=== PATIENT | male | born 1985 | race Caucasian/White ===

== ENCOUNTER 2016-07-12 18:35 | Emergency (ER) | payer BC, OTHER ==
[2016-07-12] MEDS ORDERED: Sodium Chloride 0.9% 1,000 ML IV ONE (19:20)
[2016-07-12] MEDS ORDERED: fentaNYL 100 MCG/2 ML SDV IVPUSH ONE (19:20)
[2016-07-12 20:04] LABS: CHLORIDE,CL 107 mmol/L (98-110); SODIUM,NA 140 mmol/L (136-146)
--- NOTE | 2016-07-12 20:48 | EDM.PDOC ---
ED HPI GENERAL MEDICAL PROBLEM - General Chief Complaint: Gastrointestinal Problem Stated Complaint: ANAL BLEEDING Time Seen by Provider: 07/12/16 19:20 Source of Information: Reports: Patient History Limitations: Reports: No Limitations - History of Present Illness INITIAL COMMENTS - FREE TEXT/NARRATIVE: History of present illness: [30-year-old male presenting with complaints of anal pain and discharge. Patient has had A. complex history with fistulas and abscesses that he has received surgical interventions for her as well as outpatient treatment. Patient is on several antibiotics but came in today secondary to feelings of increased discomfort as well as increased discharge, desires to be evaluated.] Review of systems: As per history of present illness and below otherwise all systems reviewed and negative. Past medical history: As per history of present illness and as reviewed below otherwise noncontributory. Surgical history: As per history of present illness and as reviewed below otherwise noncontributory. Social history: No reported history of drug or alcohol abuse. Family history: As per history of present illness and as reviewed below otherwise noncontributory. Physical exam: HEENT: Atraumatic, normocephalic, pupils reactive, negative for conjunctival pallor or scleral icterus, mucous membranes moist, throat clear, neck supple, nontender, trachea midline. Lungs: Clear to auscultation, breath sounds equal bilaterally, chest nontender. Heart: S1S2, regular, negative for clicks, rubs, or JVD. Abdomen: Soft, nondistended, nontender. Negative for masses or hepatosplenomegaly. Negative for costovertebral tenderness. Pelvis: Stable nontender. Genitourinary: Deferred. Rectal: Area visualized with Band-Aid noted to be in place with scant amount of drainage at this time Extremities: Atraumatic, negative for cords or calf pain. Neurovascular unremarkable. Neuro: Awake, alert, oriented. Cranial nerves II through XII unremarkable. Cerebellum unremarkable. Motor and sensory unremarkable throughout. Exam nonfocal. Diagnostics: [CBC, CMP] Therapeutics: [IV fluids, fentanyl] Impression: [Abscess] Plan: [Followup with PCP continue antibiotics] Definitive disposition and diagnosis as appropriate pending reevaluation and review of above. Rectal Pain Score (Numeric/FACES): 8 - Related Data Allergies Allergy/AdvReac Type Severity Reaction Status Date / Time tramadol Allergy Seizure Verified 07/12/16 18:46 Home Meds: Home Meds Gabapentin [Neurontin] 1,200 mg PO TID 08/11/14 [History] Levofloxacin [Levaquin] 500 mg PO DAILY #9 tab 08/11/14 [Rx] metroNIDAZOLE [Flagyl] 500 mg PO Q8H #27 tablet 08/11/14 [Rx] oxyCODONE HCl/Acetaminophen [Percocet 5-325 mg Tablet] 1 - 2 each PO Q4H #5 tablet 08/11/14 [Rx] Ciprofloxacin HCl [Cipro] 500 mg PO ASDIRECTED 07/12/16 [History] Past Medical History HEENT History: Reports: Impaired Vision Cardiovascular History: Reports: Hypertension Respiratory History: Reports: None Other Gastrointestinal History: nery-rectal abccess Genitourinary History: Reports: None Neurological History: Reports: Neuropathy, Peripheral Psychiatric History: Reports: None Endocrine/Metabolic History: Reports: Obesity/BMI 30+ Hematologic History: Reports: None Immunologic History: Reports: None Oncologic (Cancer) History: Reports: None Dermatologic History: Reports: None - Past Surgical History Head Surgeries/Procedures: Reports: None Musculoskeletal Surgical History: Reports: Shoulder Surgery Social & Family History - Family History Family Medical History: Noncontributory - Tobacco Use Smoking Status *Q: Current Every Day Smoker Years of Tobacco use: 10 Packs/Tins Daily: 1 Used Tobacco, but Quit: No - Caffeine Use Caffeine Use: Reports: Coffee - Recreational Drug Use Recreational Drug Use: No ED ROS GENERAL - Review of Systems Review Of Systems: See Below (See history of present illness) ED EXAM, GENERAL - Physical Exam Exam: See Below (The history of present illness) Course - Vital Signs Last Recorded V/S: Last Vital Signs Temp 36.7 C 07/12/16 18:48 Pulse 87 07/12/16 18:48 Resp 18 07/12/16 18:48 BP 165/102 H 07/12/16 18:48 Pulse Ox 98 07/12/16 18:48 - Orders/Labs/Meds Labs: Laboratory Tests 07/12/16 07/12/16 Range/Units 19:30 19:30 WBC 9.00 (4.0-11.0) K/uL RBC 5.13 (4.50-5.90) M/uL Hgb 15.5 (13.0-17.0) g/dL Hct 44.7 (38.0-50.0) % MCV 87.1 (80.0-98.0) fL MCH 30.2 (27.0-32.0) pg MCHC 34.7 (31.0-37.0) g/dL RDW Std Deviation 42.3 (28.0-62.0) fl RDW Coeff of Soniya 13 (11.0-15.0) % Plt Count 207 (150-400) K/uL MPV 9.70 (7.40-12.00) fL Neut % (Auto) 58.8 (48.0-80.0) % Lymph % (Auto) 34.0 (16.0-40.0) % [place] % (Auto) 5.9 (0.0-15.0) % Eos % (Auto) 1.1 (0.0-7.0) % Baso % (Auto) 0.2 (0.0-1.5) % Neut # (Auto) 5.3 (1.4-5.7) K/uL Lymph # (Auto) 3.1 H (0.6-2.4) K/uL [place] # (Auto) 0.5 (0.0-0.8) K/uL Eos # (Auto) 0.1 (0.0-0.7) K/uL Baso # (Auto) 0.0 (0.0-0.1) K/uL Nucleated RBC % 0.0 /100WBC Nucleated RBCs # 0 K/uL Sodium 140 (136-146) mmol/L Potassium 3.6 (3.5-5.1) mmol/L Chloride 107 (98-110) mmol/L Carbon Dioxide 20 L (21-31) mmol/L BUN 10 (6.0-23.0) mg/dL Creatinine 0.9 (0.6-1.5) mg/dL Est Cr Clr Drug Dosing 135.63 mL/min Estimated GFR (MDRD) > 60.0 ml/min Glucose 91 (60-110) mg/dL Calcium 10.5 (8.8-10.8) mg/dL Total Bilirubin 0.3 (0.1-1.5) mg/dL AST 21 (5-40) IU/L ALT 27 (8-54) IU/L Alkaline Phosphatase 61 (40-150) Total Protein 7.5 (6.0-8.0) g/dL Albumin 4.5 (3.5-5.0) g/dL Globulin 3.0 (2.0-3.5) g/dL Albumin/Globulin Ratio 1.5 (1.3-2.8) Meds: Medications Discontinued Medications Generic Name Dose Route Start Last Admin Trade Name Tiagoq PRN Reason Stop Dose Admin Fentanyl 50 mcg 07/12/16 19:20 07/12/16 19:34 Sublimaze IVPUSH 07/12/16 19:21 50 mcg ONETIME ONE Administration Sodium Chloride 1,000 mls @ 999 mls/hr 07/12/16 19:20 07/12/16 19:33 Normal Saline IV 07/12/16 20:20 999 mls/hr STAT ONE Administration Departure - Departure Time of Disposition: 20:47 Disposition: Home, Self-Care 01 Condition: good Clinical Impression: Abscess, renal/perirenal - Discharge Information Forms: ED Department Discharge Additional Instructions: The following information is given to patients seen in the emergency department who are being discharged to home. This information is to outline your options for follow-up care. We provide all patients seen in our emergency department with a follow-up referral. The need for follow-up, as well as the timing and circumstances, are variable depending upon the specifics of your emergency department visit. If you don't have a primary care physician on staff, we will provide you with a referral. We always advise you to contact your personal physician following an emergency department visit to inform them of the circumstance of the visit and for follow-up with them and/or the need for any referrals to a consulting specialist. The emergency department will also refer you to a specialist when appropriate. This referral assures that you have the opportunity for follow-up care with a specialist. All of these measure are taken in an effort to provide you with optimal care, which includes your follow-up. Under all circumstances we always encourage you to contact your private physician who remains a resource for coordinating your care. When calling for follow-up care, please make the office aware that this follow-up is from your recent emergency room visit. If for any reason you are refused follow-up, please contact the [facility] Emergency Department at and asked to speak to the emergency department charge nurse. Continue on the antibiotics as prescribed Followup with your PCP 1-2 days Return to ED as needed as discussed
[2016-07-12 20:59] VITALS: BP 142/90
== END 2016-07-12 21:03 | disposition home or self-care (01) ==
LOC: MW.ED 18:35
DX: N15.1 Renal and perinephric abscess (principal); F17.210 Nicotine dependence, cigarettes, uncomplicated; I10 Essential (primary) hypertension; E66.9 Obesity, unspecified; Z68.34 Body mass index [BMI] 34.0-34.9, adult; Z88.5 Allergy status to narcotic agent; Z79.899 Other long term (current) drug therapy
CPT/HCPCS: 80053; 85025; 96361; 96374; 99284; J3010; J7040

== ENCOUNTER 2016-08-28 18:31 | Emergency (ER) | payer BC, OTHER ==
[2016-08-28] MEDS ORDERED: Morphine 10 MG/ML Syringe IM ONE (18:36)
[2016-08-28] MEDS ORDERED: Ketorolac 60 MG/2 ML SDV IM ONE (18:36)
--- NOTE | 2016-08-28 18:54 | EDM.PDOC ---
ED HPI GENERAL MEDICAL PROBLEM - General Chief Complaint: General Stated Complaint: DISLOCATED LEFT SHOULDER Time Seen by Provider: 08/28/16 18:35 Source of Information: Reports: Patient History Limitations: Reports: No Limitations - History of Present Illness INITIAL COMMENTS - FREE TEXT/NARRATIVE: History of present illness: [30-year-old male presenting with acute onset left-sided shoulder pain. Patient has a protracted history of dislocations and has had surgery on the shoulder for this problem but indicates he was holding a tool box in this arm and was bending over to set it down when he felt his arm give. Patient is certain that it is dislocated again.] Review of systems: As per history of present illness and below otherwise all systems reviewed and negative. Past medical history: As per history of present illness and as reviewed below otherwise noncontributory. Surgical history: As per history of present illness and as reviewed below otherwise noncontributory. Social history: No reported history of drug or alcohol abuse. Family history: As per history of present illness and as reviewed below otherwise noncontributory. Physical exam: HEENT: Atraumatic, normocephalic, pupils reactive, negative for conjunctival pallor or scleral icterus, mucous membranes moist, throat clear, neck supple, nontender, trachea midline. Lungs: Clear to auscultation, breath sounds equal bilaterally, chest nontender. Heart: S1S2, regular, negative for clicks, rubs, or JVD. Abdomen: Soft, nondistended, nontender. Negative for masses or hepatosplenomegaly. Negative for costovertebral tenderness. Pelvis: Stable nontender. Genitourinary: Deferred. Rectal: Deferred. Extremities: Atraumatic, negative for cords or calf pain. Neurovascular unremarkable. Neuro: Awake, alert, oriented. Cranial nerves II through XII unremarkable. Cerebellum unremarkable. Motor and sensory unremarkable throughout. Exam nonfocal. Diagnostics: [X-ray of left shoulder] Therapeutics: [Toradol, Norflex, morphine] Impression: [Shoulder pain] Plan: [Sling follow-up with primary care Definitive disposition and diagnosis as appropriate pending reevaluation and review of above. left shoulder Pain Score (Numeric/FACES): 8 - Related Data Allergies Allergy/AdvReac Type Severity Reaction Status Date / Time tramadol Allergy Seizure Verified 08/28/16 18:40 Home Meds: Home Meds Gabapentin [Neurontin] 1,200 mg PO TID 08/11/14 [History] Losartan [Cozaar] 100 mg PO DAILY 08/28/16 [History] Past Medical History HEENT History: Reports: Impaired Vision Cardiovascular History: Reports: Hypertension Respiratory History: Reports: None Other Gastrointestinal History: nery-rectal abccess Genitourinary History: Reports: None Neurological History: Reports: Neuropathy, Peripheral Psychiatric History: Reports: None Endocrine/Metabolic History: Reports: Obesity/BMI 30+ Hematologic History: Reports: None Immunologic History: Reports: None Oncologic (Cancer) History: Reports: None Dermatologic History: Reports: None - Past Surgical History Head Surgeries/Procedures: Reports: None Musculoskeletal Surgical History: Reports: Shoulder Surgery Social & Family History - Family History Family Medical History: Noncontributory - Tobacco Use Smoking Status *Q: Current Every Day Smoker Years of Tobacco use: 10 Packs/Tins Daily: 1 Used Tobacco, but Quit: No - Caffeine Use Caffeine Use: Reports: Coffee - Recreational Drug Use Recreational Drug Use: No ED ROS GENERAL - Review of Systems Review Of Systems: See Below (See history of present illness) ED EXAM, GENERAL - Physical Exam Exam: See Below (See history of present illness) Course - Vital Signs Last Recorded V/S: Last Vital Signs Temp 36.7 C 08/28/16 19:08 Pulse 102 H 08/28/16 19:08 Resp 18 08/28/16 19:08 BP 137/91 H 08/28/16 19:08 Pulse Ox 96 08/28/16 19:08 - Orders/Labs/Meds Orders: Active Orders 24 hr Category Date Time Status Shoulder Comp Lt [CR] Stat Exams 08/28/16 18:36 Taken Orphenadrine [Norflex] Med 08/28/16 18:45 Active 60 mg IM Q12H Medication Orders Orphenadrine Citrate (Norflex) 60 mg IM Q12H MEREDITH Last Admin: 08/28/16 18:42 Dose: 60 mg Meds: Medications Generic Name Dose Route Start Last Admin Trade Name Freq PRN Reason Stop Dose Admin Orphenadrine Citrate 60 mg 08/28/16 18:45 08/28/16 18:42 Norflex IM 60 mg Q12H MEREDITH Administration Discontinued Medications Generic Name Dose Route Start Last Admin Trade Name Freq PRN Reason Stop Dose Admin Ketorolac Tromethamine 60 mg 08/28/16 18:36 08/28/16 18:42 Toradol IM 08/28/16 18:37 60 mg ONETIME ONE Administration Morphine Sulfate 5 mg 08/28/16 18:36 08/28/16 18:41 Morphine IM 08/28/16 18:37 5 mg ONETIME ONE Administration Departure - Departure Time of Disposition: 19:41 Disposition: Home, Self-Care 01 Condition: Good Clinical Impression: Shoulder pain - Discharge Information Additional Instructions: The following information is given to patients seen in the emergency department who are being discharged to home. This information is to outline your options for follow-up care. We provide all patients seen in our emergency department with a follow-up referral. The need for follow-up, as well as the timing and circumstances, are variable depending upon the specifics of your emergency department visit. If you don't have a primary care physician on staff, we will provide you with a referral. We always advise you to contact your personal physician following an emergency department visit to inform them of the circumstance of the visit and for follow-up with them and/or the need for any referrals to a consulting specialist. The emergency department will also refer you to a specialist when appropriate. This referral assures that you have the opportunity for follow-up care with a specialist. All of these measure are taken in an effort to provide you with optimal care, which includes your follow-up. Under all circumstances we always encourage you to contact your private physician who remains a resource for coordinating your care. When calling for follow-up care, please make the office aware that this follow-up is from your recent emergency room visit. If for any reason you are refused follow-up, please contact the [facility] Emergency Department at and asked to speak to the emergency department charge nurse. Take medication as directed Use sling as instructed Follow-up with PCP in 1-2 days Return to ED as needed as discussed - My Orders Last 24 Hours: My Active Orders 08/28/16 18:36 Shoulder Comp Lt [CR] Stat 08/28/16 18:45 Orphenadrine [Norflex] 60 mg IM Q12H - Assessment/Plan Last 24 Hours: My Active Orders 08/28/16 18:36 Shoulder Comp Lt [CR] Stat 07/08/17 18:45 Orphenadrine [Norflex] 60 mg IM Q12H
[2016-08-28 20:41] VITALS: BP 136/82
--- NOTE | 2016-08-30 13:08 | CR ---
EXAM DATE: 08/28/16 PATIENT'S AGE: 30 Patient: LAMAR LOPEZ Facility: [place], [place] Site . Site : 1985 Study: XRay Shoulder Left [id number] 7:04:25 PM Ordering Physician: Doctor Kothari Final Report: INDICATION: Trauma. Pain. Previous surgery of the left shoulder February 2016. Technique : Three views of the left shoulder. COMPARISON: None. FINDINGS: There is no evidence for new or old fracture or dislocation. No erosion. The AC and glenohumeral joints are normal. Metallic screw within the left humeral head. IMPRESSION: 1. Postsurgical change left humerus. 2. No acute fracture or dislocation. Dictated by Aquiles Scott MD @ 08/28/2016 7:27:14 PM Dictated by: Aquiles Scott MD @ 08/28/2016 19:27:21 (Electronic Signature) Report Signed by Proxy. LORETTA
== END 2016-08-28 20:09 | disposition home or self-care (01) ==
LOC: MW.ED 18:31
DX: M25.512 Pain in left shoulder (principal); I10 Essential (primary) hypertension; E66.9 Obesity, unspecified; F17.210 Nicotine dependence, cigarettes, uncomplicated; Z88.5 Allergy status to narcotic agent; Z79.899 Other long term (current) drug therapy; Z68.34 Body mass index [BMI] 34.0-34.9, adult
CPT/HCPCS: 73030; 96372; 99283; J1885; J2270; J2360

== ENCOUNTER 2018-06-14 18:44 | Observation (INO) | payer BC, OTHER ==
[2018-06-14] MEDS ORDERED: Aspirin 81 MG Tab.Chew PO ONE (19:04)
[2018-06-14] MEDS ORDERED: Albuterol/Ipratropium 3.0-0.5 MG/3 ML Neb Soln NEB ONE (19:09)
[2018-06-14] MEDS: Nitroglycerin 0.4 MG Tab.SL SL PRN ×3 (19:09→19:22)
[2018-06-14] MEDS ORDERED: methylPREDNISolone Sodium Succinate 125 MG/2 ML SDV IVPUSH ONE (19:09)
[2018-06-14] MEDS ORDERED: Sodium Chloride 0.9% 1,000 ML IV ONE ×2 (19:11→21:04)
[2018-06-14] MEDS ORDERED: Ondansetron 4 MG/2 ML SDV IVPUSH ONE (19:11)
--- NOTE | 2018-06-14 19:12 | EDM.PDOC ---
ED [facility] GENERAL MEDICAL PROBLEM - General Chief Complaint: Chest Pain Stated Complaint: CHEST PAIN Time Seen by Provider: 06/14/18 18:47 Source of Information: Reports: Patient History Limitations: Reports: No Limitations - History of Present Illness INITIAL COMMENTS - FREE TEXT/NARRATIVE: HISTORY AND PHYSICAL: History of present illness: Patient is a 32-year-old male presents to the ED today with concern of mid sternal chest pain 3 hours that he rates a 7 out of 10. Patient states that he was at work climbing up stairs when he noticed the chest pain symptoms worsening. Patient states he does have a history of a stroke with residual right sided mouth weakness per his baseline. Patient states he has not taken any medications for his symptoms and he is not on any blood thinners at this time. Patient states he does have some nausea and that this pain radiates to his back. Patient does smoke a half a pack a day for 15 years. Patient denies fever, chills, shortness of breath, or cough. Denies headache, neck stiff ness, change in vision, syncope, or near syncope. Denies vomiting, abdominal pain, diarrhea, constipation, or dysuria. Has not noted any blood in urine or stool. Patient has been eating and drinking appropriately. Patient does have a history of hypertension and history of stroke. Review of systems: As per history of present illness and below otherwise all systems reviewed and negative. Past medical history: As per history of present illness and as reviewed below otherwise noncontributory. Surgical history: As per history of present illness and as reviewed below otherwise noncontributory. Social history: See social history for further information Family history: As per history of present illness and as reviewed below otherwise noncontributory. Physical exam: General: Patient is alert, oriented, and in no acute distress. Patient sitting comfortably on exam table. HEENT: Atraumatic, normocephalic, pupils equal and reactive bilaterally, negative for conjunctival pallor or scleral icterus, mucous membranes moist, TMs normal bilaterally, throat clear, neck supple, nontender, trachea midline. No drooling or trismus noted. No meningeal signs. No hot potato voice noted. Lungs: Diffuse wheezing of the lung bases heard to auscultation, breath sounds equal bilaterally, chest nontender. Heart: S1S2, regular rate and rhythm without overt murmur Abdomen: Obese, soft, nondistended, nontender. Negative for masses or hepatosplenomegaly. Negative for costovertebral tenderness. Pelvis: Stable nontender. Genitourinary: Deferred. Rectal: Deferred. Skin: Intact, warm, dry. No lesions or rashes noted. Extremities: Atraumatic, negative for cords or calf pain. Neurovascular unremarkable. Neuro: Awake, alert, oriented. Cranial nerves II through XII unremarkable. Cerebellum unremarkable. Motor and sensory unremarkable throughout. Exam nonfocal. Notes: Patient does have resolution of symptoms following therapeutics today. Offered admission for observation the patient declines at this time. He states he is accepting the risks of going home Voices understanding and is agreeable to plan of care. Denies any further questions or concerns at this time. Diagnostics: EKG, CBC, CMP, UA, troponin, chest x-ray, lipase Therapeutics: Saline, aspirin, nitroglycerin, DuoNeb, Solu-Medrol, Zofran, morphine Prescription: None Impression: Chest pain, unspecified h/o of stroke Plan: 1. You can alternate ibuprofen or Tylenol as directed for pain and discomfort. 2. Follow-up with her primary care provider as discussed. 3. Return to the ED as needed and as discussed. Definitive disposition and diagnosis as appropriate pending reevaluation and review of above. Mid-Sternal Chest Pain Score (Numeric/FACES): 6 - Related Data Allergies Allergy/AdvReac Type Severity Reaction Status Date / Time tramadol Allergy Seizure Verified 06/14/18 18:57 Home Meds: Home Meds Gabapentin [Neurontin] 600 mg PO TID 08/11/14 [History] Losartan [Cozaar] 100 mg PO DAILY 08/28/16 [History] atorvaSTATin [Lipitor] 06/14/18 [History] Past Medical History HEENT History: Reports: Impaired Vision Cardiovascular History: Reports: Hypertension Respiratory History: Reports: None Other Gastrointestinal History: nery-rectal abccess Genitourinary History: Reports: None Neurological History: Reports: CVA, Neuropathy, Peripheral Psychiatric History: Reports: None Endocrine/Metabolic History: Reports: Obesity/BMI 30+ Hematologic History: Reports: None Immunologic History: Reports: None Oncologic (Cancer) History: Reports: None Dermatologic History: Reports: None - Infectious Disease History Infectious Disease History: Reports: Chicken Pox - Past Surgical History Head Surgeries/Procedures: Reports: None Musculoskeletal Surgical History: Reports: Shoulder Surgery Social & Family History - Family History Family Medical History: Noncontributory - Tobacco Use Smoking Status *Q: Current Every Day Smoker Years of Tobacco use: 12 Packs/Tins Daily: 0.5 - Caffeine Use Caffeine Use: Reports: Coffee - Recreational Drug Use Recreational Drug Use: No ED ROS GENERAL - Review of Systems Review Of Systems: ROS reveals no pertinent complaints other than HPI. ED EXAM, GENERAL - Physical Exam Exam: See Below (See dictation) Course - Vital Signs Last Recorded V/S: Last Vital Signs Temp 36.7 C 06/14/18 18:53 Pulse 92 06/14/18 18:53 Resp 18 06/14/18 18:53 BP 130/92 H 06/14/18 19:22 Pulse Ox 96 06/14/18 18:53 - Orders/Labs/Meds Orders: Active Orders 24 hr Category Date Time Status Cardiac Monitoring [RC] . DIRECTED Care 06/14/18 18:47 Active EKG Documentation Completion [RC] STAT Care 06/14/18 18:48 Active RT Aerosol Therapy [RC] ASDIRECTED Care 06/14/18 19:09 Active UA RFX CALE AND CULT IF INDIC [URIN] Stat Lab 06/14/18 18:47 Ordered Labs: Laboratory Tests 06/14/18 06/14/18 Range/Units 18:50 18:50 WBC 10.40 (4.0-11.0) K/uL RBC 5.37 (4.50-5.90) M/uL Hgb 16.3 (13.0-17.0) g/dL Hct 47.3 (38.0-50.0) % MCV 88.1 (80.0-98.0) fL MCH 30.4 (27.0-32.0) pg MCHC 34.5 (31.0-37.0) g/dL RDW Std Deviation 41.1 (28.0-62.0) fl RDW Coeff of Soniya 13 (11.0-15.0) % Plt Count 230 (150-400) K/uL MPV 9.70 (7.40-12.00) fL Neut % (Auto) 55.8 (48.0-80.0) % Lymph % (Auto) 36.0 (16.0-40.0) % [place] % (Auto) 5.5 (0.0-15.0) % Eos % (Auto) 2.5 (0.0-7.0) % Baso % (Auto) 0.2 (0.0-1.5) % Neut # (Auto) 5.8 H (1.4-5.7) K/uL Lymph # (Auto) 3.7 H (0.6-2.4) K/uL [place] # (Auto) 0.6 (0.0-0.8) K/uL Eos # (Auto) 0.3 (0.0-0.7) K/uL Baso # (Auto) 0.0 (0.0-0.1) K/uL Nucleated RBC % 0.0 /100WBC Nucleated RBCs # 0 K/uL Sodium 139 (136-148) mmol/L Potassium 3.7 (3.5-5.1) mmol/L Chloride 103 (98-107) mmol/L Carbon Dioxide 25.0 (21.0-32.0) mmol/L BUN 10 (7.0-18.0) mg/dL Creatinine 1.0 (0.8-1.3) mg/dL Est Cr Clr Drug Dosing 119.85 mL/min Estimated GFR (MDRD) > 60.0 ml/min Glucose 91 (74-106) mg/dL Calcium 9.1 (8.5-10.1) mg/dL Total Bilirubin 0.4 (0.2-1.0) mg/dL AST 18 (15-37) IU/L ALT 40 (14-63) IU/L Alkaline Phosphatase 75 (46-116) U/L Troponin I < 0.050 (0.000-0.056) ng/mL Total Protein 8.0 (6.4-8.2) g/dL Albumin 4.4 (3.4-5.0) g/dL Globulin 3.6 (2.6-4.0) g/dL Albumin/Globulin Ratio 1.2 (0.9-1.6) Lipase 92 (73-393) U/L Meds: Medications Discontinued Medications Generic Name Dose Route Start Last Admin Trade Name Freq PRN Reason Stop Dose Admin Albuterol/Ipratropium 3 ml 06/14/18 19:09 06/14/18 19:23 Duoneb 3.0-0.5 Mg/3 Ml NEB 06/14/18 19:10 3 ml ONETIME ONE Administration Aspirin 324 mg 06/14/18 19:04 06/14/18 19:09 Aspirin PO 06/14/18 19:05 324 mg ONETIME ONE Administration Sodium Chloride 1,000 mls @ 999 mls/hr 06/14/18 19:11 06/14/18 19:13 Normal Saline IV 06/14/18 20:11 999 mls/hr STAT ONE Administration Methylprednisolone Sodium Succinate 125 mg 06/14/18 19:09 06/14/18 19:13 Solu-Medrol IVPUSH 06/14/18 19:10 125 mg ONETIME ONE Administration Morphine Sulfate 2 mg 06/14/18 19:29 06/14/18 19:39 Morphine IVPUSH 06/14/18 19:30 2 mg ONETIME ONE Administration Nitroglycerin 0.4 mg 06/14/18 19:04 06/14/18 19:22 Nitrostat SL 0.4 mg Q5M PRN Administration Chest Pain Ondansetron HCl 4 mg 06/14/18 19:11 06/14/18 19:16 Zofran IVPUSH 06/14/18 19:12 4 mg ONETIME ONE Administration Departure - Departure Time of Disposition: 20:30 Disposition: Home, Self-Care 01 Clinical Impression: Chest pain Qualifiers: Chest pain type: unspecified Qualified Code(s): R07.9 - Chest pain, unspecified Forms: ED Department Discharge Additional Instructions: The following information is given to patients seen in the emergency department who are being discharged to home. This information is to outline your options for follow-up care. We provide all patients seen in our emergency department with a follow-up referral. The need for follow-up, as well as the timing and circumstances, are variable depending upon the specifics of your emergency department visit. If you don't have a primary care physician on staff, we will provide you with a referral. We always advise you to contact your personal physician following an emergency department visit to inform them of the circumstance of the visit and for follow-up with them and/or the need for any referrals to a consulting specialist. The emergency department will also refer you to a specialist when appropriate. This referral assures that you have the opportunity for follow-up care with a specialist. All of these measure are taken in an effort to provide you with optimal care, which includes your follow-up. Under all circumstances we always encourage you to contact your private physician who remains a resource for coordinating your care. When calling for follow-up care, please make the office aware that this follow-up is from your recent emergency room visit. If for any reason you are refused follow-up, please contact the [facility] Emergency Department at and asked to speak to the emergency department charge nurse. [facility] [address] [place] [id number] [facility] [address] [place] [id number] 1. You can alternate ibuprofen or Tylenol as directed for pain and discomfort. 2. Follow-up with her primary care provider as discussed. 3. Return to the ED as needed and as discussed. - My Orders Last 24 Hours: My Active Orders 06/14/18 18:47 Cardiac Monitoring [RC] . DIRECTED UA RFX CALE AND CULT IF INDIC [URIN] Stat 06/14/18 18:48 EKG Documentation Completion [RC] STAT 06/14/18 19:09 RT Aerosol Therapy [RC] ASDIRECTED - Assessment/Plan Last 24 Hours: My Active Orders 06/14/18 18:47 Cardiac Monitoring [RC] . DIRECTED UA RFX CALE AND CULT IF INDIC [URIN] Stat 06/14/18 18:48 EKG Documentation Completion [RC] STAT 06/14/18 19:09 RT Aerosol Therapy [RC] ASDIRECTED
[2018-06-14 19:27] LABS: CHLORIDE,CL 103 mmol/L (98-107); SODIUM,NA 139 mmol/L (136-148)
[2018-06-14] MEDS ORDERED: Morphine 2 MG/ML Syringe IVPUSH ONE ×2 (19:29→21:43)
--- NOTE | 2018-06-14 20:24 | CR ---
Indication: Chest pain, shortness of breath, lightheaded Technique: Chest 1 view Comparison: None Findings/Impression: Cardiovascular and mediastinum: Heart size and vasculature are normal in caliber and appearance. Mediastinum is within normal limits. Lungs and pleural space: Lungs are clear. No sign of infiltrate or mass. No sign of pleural effusion. No pneumothorax. Bones and soft tissues: No significant findings. Dictated by Claudine Rich MD @ Jun 14 2018 8:21PM Signed by Dr. Claudine Rich @ Jun 14 2018 8:22PM
[2018-06-14] MEDS ORDERED: Pantoprazole 40 MG Vial IVPUSH ONE (22:13)
[2018-06-14] MEDS ORDERED: Morphine 10 MG/ML Syringe IVPUSH PRN (22:13)
[2018-06-14] MEDS ORDERED: Ondansetron 4 MG/2 ML SDV IVPUSH PRN (22:13)
--- NOTE | 2018-06-14 22:17 | PCM.HP ---
H&P History of Present Illness - General Date of Service: 06/14/18 Admit Problem/Dx: Admission Diagnosis/Problem Admission Diagnosis/Problem Chest pain - History of Present Illness Initial Comments - Free Text/Narative: 32 yo male with pmh of CVA who presents with several hour history of chest pain. The pain is a sharp substernal chest pressure that occurs with exertion. He denies any shortness of breath, cough, fevers, or diaphoresis. He was given ASA in the the ED. Initial EKG and cardiac enzymes were negative for signs of ischemia. CXR was clear. Mid-Sternal Chest Pain Score (Numeric/FACES): 6 - Related Data Allergies/Adverse Reactions: Allergies Allergy/AdvReac Type Severity Reaction Status Date / Time tramadol Allergy Seizure Verified 06/14/18 18:57 Home Medications: Home Meds Gabapentin [Neurontin] 600 mg PO TID 08/11/14 [History] Losartan [Cozaar] 100 mg PO DAILY 08/28/16 [History] atorvaSTATin [Lipitor] 06/14/18 [History] Past Medical History HEENT History: Reports: Impaired Vision Cardiovascular History: Reports: Hypertension Respiratory History: Reports: None Other Gastrointestinal History: nery-rectal abccess Genitourinary History: Reports: None Neurological History: Reports: CVA, Neuropathy, Peripheral Psychiatric History: Reports: None Endocrine/Metabolic History: Reports: Obesity/BMI 30+ Hematologic History: Reports: None Immunologic History: Reports: None Oncologic (Cancer) History: Reports: None Dermatologic History: Reports: None - Infectious Disease History Infectious Disease History: Reports: Chicken Pox - Past Surgical History Head Surgeries/Procedures: Reports: None Musculoskeletal Surgical History: Reports: Shoulder Surgery Social & Family History - Family History Family Medical History: Noncontributory - Tobacco Use Smoking Status *Q: Current Every Day Smoker Years of Tobacco use: 12 Packs/Tins Daily: 0.5 - Caffeine Use Caffeine Use: Reports: Coffee - Recreational Drug Use Recreational Drug Use: No H&P Review of Systems - Review of Systems: Review Of Systems: ROS reveals no pertinent complaints other than HPI. Exam - Exam Exam: See Below - Vital Signs Vital Signs: Last Vital Signs Temp 36.3 C 06/14/18 20:38 Pulse 84 06/14/18 20:38 Resp 16 06/14/18 20:38 BP 121/81 06/14/18 20:38 Pulse Ox 95 06/14/18 20:38 Weight: 122.47 kg - Exam General: Alert, Oriented HEENT: Conjunctiva Clear, Mucosa Moist & [place] Lungs: Clear to Auscultation, Normal Respiratory Effort Cardiovascular: Regular Rate, Regular Rhythm GI/Abdominal Exam: Normal Bowel Sounds, Soft, Non-Tender Extremities: Normal Range of Motion, Non-Tender Skin: Warm, Dry, Intact Neurological: Strength Equal Bilateral - Patient Data Lab Results Last 24 hrs: Laboratory Results - last 24 hr 06/14/18 06/14/18 Range/Units 18:50 18:50 WBC 10.40 (4.0-11.0) K/uL RBC 5.37 (4.50-5.90) M/uL Hgb 16.3 (13.0-17.0) g/dL Hct 47.3 (38.0-50.0) % MCV 88.1 (80.0-98.0) fL MCH 30.4 (27.0-32.0) pg MCHC 34.5 (31.0-37.0) g/dL RDW Std Deviation 41.1 (28.0-62.0) fl RDW Coeff of Soniya 13 (11.0-15.0) % Plt Count 230 (150-400) K/uL MPV 9.70 (7.40-12.00) fL Neut % (Auto) 55.8 (48.0-80.0) % Lymph % (Auto) 36.0 (16.0-40.0) % [place] % (Auto) 5.5 (0.0-15.0) % Eos % (Auto) 2.5 (0.0-7.0) % Baso % (Auto) 0.2 (0.0-1.5) % Neut # (Auto) 5.8 H (1.4-5.7) K/uL Lymph # (Auto) 3.7 H (0.6-2.4) K/uL [place] # (Auto) 0.6 (0.0-0.8) K/uL Eos # (Auto) 0.3 (0.0-0.7) K/uL Baso # (Auto) 0.0 (0.0-0.1) K/uL Nucleated RBC % 0.0 /100WBC Nucleated RBCs # 0 K/uL Sodium 139 (136-148) mmol/L Potassium 3.7 (3.5-5.1) mmol/L Chloride 103 (98-107) mmol/L Carbon Dioxide 25.0 (21.0-32.0) mmol/L BUN 10 (7.0-18.0) mg/dL Creatinine 1.0 (0.8-1.3) mg/dL Est Cr Clr Drug Dosing 119.85 mL/min Estimated GFR (MDRD) > 60.0 ml/min Glucose 91 (74-106) mg/dL Calcium 9.1 (8.5-10.1) mg/dL Total Bilirubin 0.4 (0.2-1.0) mg/dL AST 18 (15-37) IU/L ALT 40 (14-63) IU/L Alkaline Phosphatase 75 (46-116) U/L Troponin I < 0.050 (0.000-0.056) ng/mL Total Protein 8.0 (6.4-8.2) g/dL Albumin 4.4 (3.4-5.0) g/dL Globulin 3.6 (2.6-4.0) g/dL Albumin/Globulin Ratio 1.2 (0.9-1.6) Lipase 92 (73-393) U/L Result Diagrams: 06/14/18 18:50 06/14/18 18:50 Problem List Initiated/Reviewed/Updated: Yes Orders Last 24hrs: Active Orders 24 hr Category Date Time Status Admission Status [Patient Status] [ADT] Stat ADT 06/14/18 20:50 Active Antiembolic Devices [RC] PER UNIT ROUTINE Care 06/14/18 22:13 Ordered Cardiac Monitoring [RC] . DIRECTED Care 06/14/18 18:47 Active EKG 12 Lead [EKG Documentation Completion] [RC] STAT Care 06/14/18 21:11 Active EKG Documentation Completion [RC] STAT Care 06/14/18 18:48 Active Oxygen Therapy [RC] PRN Care 06/14/18 22:13 Ordered RT Aerosol Therapy [RC] ASDIRECTED Care 06/14/18 19:09 Active Up ad Ekaterina [RC] ASDIRECTED Care 06/14/18 22:13 Ordered VTE/DVT Education [RC] PER UNIT ROUTINE Care 06/14/18 22:13 Ordered Vital Signs [RC] Q4H Care 06/14/18 22:13 Ordered Regular Diet [DIET] Diet 06/15/18 Breakfast Ordered Morphine Med 06/14/18 22:13 Ordered 2 mg IVPUSH Q2H PRN Ondansetron [Zofran] Med 06/14/18 22:13 Ordered 4 mg IVPUSH Q4H PRN Pantoprazole [ProTONIX IV] Med 06/14/18 22:13 Once 40 mg IVPUSH ONETIME ONE Sequential Compression Device [OM.PC] Per Unit Routine Oth 06/14/18 22:13 Ordered Resuscitation Status Routine Resus Stat 06/14/18 22:13 Ordered Medication Orders Morphine Sulfate (Morphine) 2 mg IVPUSH Q2H PRN PRN Reason: Pain (severe 7-10) Stop: 06/15/18 22:13 Ondansetron HCl (Zofran) 4 mg IVPUSH Q4H PRN PRN Reason: Nausea Pantoprazole Sodium (Protonix Iv) 40 mg IVPUSH ONETIME ONE Stop: 06/14/18 22:14 Assessment/Plan Comment:: 32 yo male admitted for chest pain. He ruled out for acute coronary syndrome with serial negative cardiac enzymes. Patient this morning is requesting discharge home. We will refer him to outpatient cardiac stress testing and a primary care physician.
[2018-06-14] MEDS: Morphine 2 MG/ML Syringe IVPUSH PRN (23:20)
[2018-06-15] MEDS ORDERED: Gabapentin 300 MG Cap PO SCH (06:00)
[2018-06-15 08:56] VITALS: BP 129/70
[2018-06-15] MEDS ORDERED: Losartan 50 MG Tab PO SCH (09:00)
[2018-06-15] MEDS: Morphine 2 MG/ML Syringe IVPUSH PRN (09:06)
== END 2018-06-15 12:10 | disposition home or self-care (01) ==
LOC: MW.ED 18:44 → MW.MS 20:50
PROVIDERS: ADMIT Internal Medicine; ATTEND Internal Medicine
DX: R07.2 Precordial pain (principal); I10 Essential (primary) hypertension; F17.200 Nicotine dependence, unspecified, uncomplicated; G62.9 Polyneuropathy, unspecified; Z88.5 Allergy status to narcotic agent; Z86.73 Personal history of transient ischemic attack (TIA), and cerebral infarction without residual deficits; Z79.899 Other long term (current) drug therapy
CPT/HCPCS: 36415; 71045; 80053; 83690; 84484; 85025; 93005; 96361; 96374; 96375; 96376; 99285; A9270; C9113; G0378; J2270; J2405; J2930; J7040; 99284; J7620-GY

== ENCOUNTER 2018-06-20 21:34 | Emergency (ER) | payer BC, OTHER ==
--- NOTE | 2018-06-20 21:44 | EDM.PDOC ---
ED HPI GENERAL MEDICAL PROBLEM - General Chief Complaint: Lower Extremity Injury/Pain Stated Complaint: LT FOOT HURTS Time Seen by Provider: 06/20/18 21:43 Source of Information: Reports: Patient - History of Present Illness INITIAL COMMENTS - FREE TEXT/NARRATIVE: HISTORY AND PHYSICAL: History of present illness: []Patient presents with left foot pain increasing in severity over the last 1-2 weeks, had a recent stay in the hospital however did not mention the foot pain at that time currently no fever nausea vomiting chills sweats no chest pain shortness breath headache dizziness palpitation about a urine symptoms denies injury or trauma Review of systems: As per history of present illness and below otherwise all systems reviewed and negative. Past medical history: As per history of present illness and as reviewed below otherwise noncontributory. Surgical history: As per history of present illness and as reviewed below otherwise noncontributory. Social history: No reported history of drug or alcohol abuse. Family history: As per history of present illness and as reviewed below otherwise noncontributory. Physical exam: HEENT: Atraumatic, normocephalic, pupils reactive, negative for conjunctival pallor or scleral icterus, mucous membranes moist, throat clear, neck supple, nontender, trachea midline. Lungs: Clear to auscultation, breath sounds equal bilaterally, chest nontender. Heart: S1S2, regular, negative for clicks, rubs, or JVD. Abdomen: Soft, nondistended, nontender. Negative for masses or hepatosplenomegaly. Negative for costovertebral tenderness. Pelvis: Stable nontender. Genitourinary: Deferred. Rectal: Deferred. Extremities: Atraumatic, negative for cords or calf pain. Neurovascular unremarkable. Neuro: Awake, alert, oriented. Cranial nerves II through XII unremarkable. Cerebellum unremarkable. Motor and sensory unremarkable throughout. Exam nonfocal. Diagnostics: [Left foot 2 views CBC uric acid ] Therapeutics: [Medrol Dosepak Indomethacin ] Impression: Acute gout [Left foot pain ] Definitive disposition and diagnosis as appropriate pending reevaluation and review of above. left leg Pain Score (Numeric/FACES): 9 - Related Data Allergies Allergy/AdvReac Type Severity Reaction Status Date / Time tramadol Allergy Seizure Verified 06/14/18 18:57 Home Meds: Home Meds Gabapentin [Neurontin] 600 mg PO TID 08/11/14 [History] Losartan [Cozaar] 100 mg PO DAILY 08/28/16 [History] atorvaSTATin [Lipitor] 06/14/18 [History] Past Medical History HEENT History: Reports: Impaired Vision Cardiovascular History: Reports: Hypertension Respiratory History: Reports: None Other Gastrointestinal History: nery-rectal abccess Genitourinary History: Reports: None Neurological History: Reports: CVA, Neuropathy, Peripheral Psychiatric History: Reports: None Endocrine/Metabolic History: Reports: Obesity/BMI 30+ Hematologic History: Reports: None Immunologic History: Reports: None Oncologic (Cancer) History: Reports: None Dermatologic History: Reports: None - Infectious Disease History Infectious Disease History: Reports: Chicken Pox - Past Surgical History Head Surgeries/Procedures: Reports: None Musculoskeletal Surgical History: Reports: Shoulder Surgery Social & Family History - Family History Family Medical History: Noncontributory - Caffeine Use Caffeine Use: Reports: Coffee Review of Systems - Review of Systems Review Of Systems: See Below ED EXAM, GENERAL - Physical Exam Exam: See Below Course - Vital Signs Last Recorded V/S: Last Vital Signs Temp 96 F 06/20/18 21:36 Pulse 129 H 06/20/18 21:36 Resp 22 H 06/20/18 21:36 BP 129/96 H 06/20/18 21:36 Pulse Ox 9 L 06/20/18 21:36 - Orders/Labs/Meds Orders: Active Orders 24 hr Category Date Time Status Foot 2V Lt [CR] Stat Exams 06/20/18 21:43 Taken Labs: Laboratory Tests 06/20/18 06/20/18 Range/Units 21:50 21:50 WBC 10.93 (4.0-11.0) K/uL RBC 5.35 (4.50-5.90) M/uL Hgb 16.4 (13.0-17.0) g/dL Hct 46.9 (38.0-50.0) % MCV 87.7 (80.0-98.0) fL MCH 30.7 (27.0-32.0) pg MCHC 35.0 (31.0-37.0) g/dL RDW Std Deviation 41.0 (28.0-62.0) fl RDW Coeff of Soniya 13 (11.0-15.0) % Plt Count 266 (150-400) K/uL MPV 9.50 (7.40-12.00) fL Neut % (Auto) 48.6 (48.0-80.0) % Lymph % (Auto) 41.2 H (16.0-40.0) % [place] % (Auto) 6.8 (0.0-15.0) % Eos % (Auto) 3.2 (0.0-7.0) % Baso % (Auto) 0.2 (0.0-1.5) % Neut # (Auto) 5.3 (1.4-5.7) K/uL Lymph # (Auto) 4.5 H (0.6-2.4) K/uL [place] # (Auto) 0.7 (0.0-0.8) K/uL Eos # (Auto) 0.4 (0.0-0.7) K/uL Baso # (Auto) 0.0 (0.0-0.1) K/uL Nucleated RBC % 0.0 /100WBC Nucleated RBCs # 0 K/uL Uric Acid 10.0 H (2.6-7.2) mg/dL Departure - Departure Time of Disposition: 22:39 Disposition: Home, Self-Care 01 Condition: Good Clinical Impression: Acute gout - Discharge Information Referrals: PCP,None [Primary Care Provider] - Forms: ED Department Discharge Additional Instructions: The following information is given to patients seen in the emergency department who are being discharged to home. This information is to outline your options for follow-up care. We provide all patients seen in our emergency department with a follow-up referral. The need for follow-up, as well as the timing and circumstances, are variable depending upon the specifics of your emergency department visit. If you don't have a primary care physician on staff, we will provide you with a referral. We always advise you to contact your personal physician following an emergency department visit to inform them of the circumstance of the visit and for follow-up with them and/or the need for any referrals to a consulting specialist. The emergency department will also refer you to a specialist when appropriate. This referral assures that you have the opportunity for follow-up care with a specialist. All of these measure are taken in an effort to provide you with optimal care, which includes your follow-up. Under all circumstances we always encourage you to contact your private physician who remains a resource for coordinating your care. When calling for follow-up care, please make the office aware that this follow-up is from your recent emergency room visit. If for any reason you are refused follow-up, please contact the [facility] emergency department at and asked to speak to the emergency department charge nurse. - My Orders Last 24 Hours: My Active Orders 06/20/18 21:43 Foot 2V Lt [CR] Stat - Assessment/Plan Last 24 Hours: My Active Orders 06/20/18 21:43 Foot 2V Lt [CR] Stat
[2018-06-20 22:46] VITALS: BP 138/85
--- NOTE | 2018-06-21 14:00 | CR ---
EXAM DATE: 06/20/18 PATIENT'S AGE: 32 Patient: LAMAR LOPEZ Facility: [facility] Site Site : 1985 Study: XRay-Extremity Left FOOT [id number]/30/2019 10:18:44 PM Ordering Physician: KIP Final Report: Indication: Pain. No injury. Technique: Two views of the left foot were obtained. Comparison: None Findings: A bipartite medial sesamoid bone is identified. No acute fracture or subluxation is identified. The joint spaces are well maintained. Impression: No acute fracture. Dictated by Ce Lancaster MD @ Jun 20 2018 10:43PM Signed by: Ce Lancaster MD @06/20/2018 10:43:39 PM (Electronic Signature) Report Signed by Proxy. [facility]
== END 2018-06-20 22:50 | disposition home or self-care (01) ==
LOC: MW.ED 21:34
DX: M10.9 Gout, unspecified (principal); E66.9 Obesity, unspecified; I10 Essential (primary) hypertension; Z88.8 Allergy status to other drugs, medicaments and biological substances; Z68.35 Body mass index [BMI] 35.0-35.9, adult
CPT/HCPCS: 36415; 73620-26-LT; 73620-LT; 84550; 85025; 99283-25